=== PATIENT | male | born 1965 | race Hispanic/Latino ===

== ENCOUNTER 2021-03-28 14:55 | Emergency (ER) | payer BC | END 2021-03-28 18:45 | disposition home or self-care (01) | LOC: CSHERS 14:55 → CSHERHOLD 17:08 → UNDOADMIN 17:08 → CSHERS 18:45 | DX: R00.2 Palpitations (principal); E11.9 Type 2 diabetes mellitus without complications; I10 Essential (primary) hypertension; Z79.899 Other long term (current) drug therapy; Z79.84 Long term (current) use of oral hypoglycemic drugs | CPT/HCPCS: 93005 ==

== ENCOUNTER 2021-09-10 15:44 | Emergency (ER) | payer BC ==
[2021-09-10] MEDS ORDERED: Lidocaine 1% (PF) 30 ML VIAL ONE (17:04)
[2021-09-10] MEDS ORDERED: Triple Antibiotic Oint 1 GM Packet ONE (19:39)
== END 2021-09-10 19:51 | disposition home or self-care (01) ==
LOC: CSHERS 15:44
DX: S61.210A Laceration without foreign body of right index finger without damage to nail, initial encounter (principal); E11.9 Type 2 diabetes mellitus without complications; I10 Essential (primary) hypertension; W26.0XXA Contact with knife, initial encounter
CPT/HCPCS: 12001; J2001